=== PATIENT | female | born 1980 | race Hispanic/Latino ===

== ENCOUNTER 2017-05-14 23:56 | Emergency (ER) | payer SELFPAY ==
[~2017-05-14] VITALS: Ht 162.6 cm; Wt 67.0 kg
[~2017-05-14 23:56] MED LIST: ADVIL200 MG PO; ALPRAZOLAM0.25 M1 PO; AMOXICILLIN875 MG PO; BL IBUPROFEN200 MG PO; FLAGYL500 MG PO; TAM75CAP PO; TRI-SPRINTEC OR; TRI-SPRINTEC PO
[2017-05-15] MEDS ORDERED: BCP (00:21)
[2017-05-15 00:59] LABS: HEMATOCRIT 36.6 % (37.0-47.0); HEMOGLOBIN 12.5 g/dl (12.0-16.0); IMMATURE GRANULOCYTES 0.3 % (0.0-1.0); MEAN CELL VOLUME 90.4 fL CALC (80.0-100.0); MEAN CORPUSCULAR HGB 30.9 pG CALC (26.0-32.0); MEAN CORPUSCULAR HGB CONC 34.2 g/L CALC (32.0-36.0); NEUT# 4.68 thou/uL (2.00-7.15); RED BLOOD COUNT 4.05 mill/uL (4.20-5.60); RED CELL DISTRI WIDTH 12.3 % (11.5-15.5)
[2017-05-15 01:01] LABS: URINE BILIRUBIN - DIPSTICK NEGATIVE (NEGATIVE); URINE BLOOD DIPSTICK NEGATIVE (NEGATIVE); URINE COLOR YELLOW; URINE GLUCOSE - DIPSTICK NEGATIVE (NEGATIVE); URINE KETONE NEGATIVE (NEGATIVE); URINE NITRITE - DIPSTICK NEGATIVE (Negative); URINE PROTEIN - DIPSTICK NEGATIVE (NEG-TRACE); URINE SPECIFIC GRAVITY <=1.005; URINE UROBILINOGEN - DIPSTICK 0.2 E.U./dL (0.2)
[2017-05-15 01:02] LABS: URINE CLARITY SL CLOUDY; URINE LEUK ESTERASE SMALL (NEGATIVE)
[2017-05-15 01:04] LABS: URINE BACTERIA FEW hpf; URINE MUCUS FEW hpf (NONE-FEW); URINE RBC 0-2 RBC/hpf (0-5); URINE SQUAMOUS EPITHELIAL CELL MODERATE EPI/hpf (0-FEW)
[2017-05-15 01:06] LABS: ALBUMIN 3.7 g/dL (3.2-5.0); ALKALINE PHOSPHATASE 74 u/l (38-126); ANION GAP 14 (6-22 (CALC)); BILIRUBIN, TOTAL 0.1 mg/dL (0.0-1.4); BUN 14 mg/dL (7-17); BUN/CREATININE RATIO 17 (12-20 (CALC)); CARBON DIOXIDE 26 mmol/l (22-30); CHLORIDE 105 mmol/l (95-108); CREATININE 0.8 mg/dL (0.5-1.0); GFR > 60 ML/MIN (>=60 (CALC)); GFR FOR AFR.AMER. > 60 ML/MIN (>=60 (CALC)); POTASSIUM 3.8 mmol/l (3.5-5.1); SGOT/AST 21 u/l (14-36); SGPT/ALT 37 u/l (9-52); SODIUM 142 mmol/l (137-146); TOTAL PROTEIN 6.3 g/dL (6.3-8.2)
[2017-05-15 01:18] LABS: MYOGLOBIN 24 ng/mL (0 - 62)
[2017-05-15] MEDS ORDERED: CIPROFLOXACN500 MG PO (01:20)
[2017-05-15 01:50] VITALS: BP 148/88
== END 2017-05-15 01:50 | disposition home or self-care (01) | DRG 880 ==
LOC: ED 23:56
PROVIDERS: Emergency Medicine
DX: F41.9 Anxiety disorder, unspecified (principal); N39.0 Urinary tract infection, site not specified